=== PATIENT | male | born 1965 | race Caucasian/White ===

== ENCOUNTER 2018-08-08 12:09 | Emergency (ER) | END 2018-08-08 15:46 | disposition home or self-care (01) ==

== ENCOUNTER 2018-12-26 23:00 | Emergency (ER) | payer OTHER ==
[~2018-12-26] VITALS: Ht 170.2 cm; Wt 72.5 kg
[~2018-12-26 23:00] MED LIST: ACET325T33 PO; HYDR-4011 PO; IBUP-1542 PO; TRAM50TA2 PO
[2018-12-26 23:23] VITALS: BP 143/94; PULSE 80; RESP 16; Ht 170.2 cm; Wt 72.5 kg
[2018-12-26] MEDS ORDERED: LIDOCAINE 2% (MDV) 20 ML INJ INJ STA (23:50)
--- NOTE | 2018-12-26 23:50 | ERD ---
ER Documentation Chief Complaint Chief Complaint LAC TO FIRST DIGIT RIGHT HAND HPI This is a 53-year-old male with a nonsignificant past medical history presents ED with laceration to right first digit. Patient states that he was working on his car just prior to arrival in ED when he accidentally cut himself with his knife. Patient admits to pain. Denies decreased range of motion, tingling, numbness, lack of sensation fever, chills and all other symptoms. No known drug allergies. Tetanus up-to-date. Does not take blood thinners ROS All systems reviewed and are negative except as per history of present illness. Medications Home Meds Active Scripts Acetaminophen* (Tylenol*) 325 Mg Tablet, 2 TAB PO Q6 PRN for PAIN AND OR ELEVATED TEMP, #30 TAB Prov:ELLA MCNEILL PA-C 08/08/18 Tramadol HCl (Tramadol HCl) 50 Mg Tablet, 50 MG PO Q4 PRN for PAIN, #30 TAB Prov:ELLA MCNEILL PA-C 08/08/18 Hydrocodone/Acetaminophen ([place]man 5-325 Tablet) 1 Each Tablet, 1 TAB PO Q6H PRN for PAIN, #20 TAB Prov:BARBY SILVERMAN PA-C 06/29/16 Ibuprofen* (Motrin*) 600 Mg Tab, 600 MG PO Q6H PRN for PAIN AND OR ELEVATED TEMP, #30 TAB Prov:BARBY SILVERMAN PA-C 06/29/16 Allergies Allergies: Coded Allergies: No Known Allergy (Unverified , 06/29/16) PMhx/Soc History of Surgery: Yes (appendix, r. inguinal hernia, deviated septum) Anesthesia Reaction: No Hx Neurological Disorder: No Hx Respiratory Disorders: No Hx Cardiac Disorders: No Hx Psychiatric Problems: No Hx Miscellaneous Medical Probl: No Hx Alcohol Use: Yes (social) Hx Substance Use: No Hx Tobacco Use: Yes Smoking Status: Never smoker FmHx Family History: No diabetes Physical Exam Vitals Vital Signs Date Temp Pulse Resp B/P (MAP) Pulse Ox O2 O2 Flow FiO2 Time Delivery Rate 12/26/18 98.6 80 16 143/94 99 23:23 (110) Physical Exam Physical Exam Vitals signs: Reviewed by me. General: Well developed, well nourished, in no acute distress. Patient is awake and alert. Head: Normocephalic, atraumatic ENT: Pharynx is clear, Moist mucous membranes, external ears, nose and mouth normal Neck: Supple, no masses, lymphadenopathy or JVD Respiratory: Clear to auscultation bilaterally with no wheezing, rhonchi, rales, no distress Cardiovascular: RRR, no murmurs, rubs, or gallops Upper Extremity -right Skin: 3 cm laceration on patient's right 2nd digit Compartments: Soft Motor: Full active range of motion hands and fingers Sensation: Intact shoulder/pinky/middle finger/thumb web space Bones: Nontender h and Snuffbox: Nontender Joints: No effusion Pulses/Perfusion: 2+ radial, Capillary refill < 2 seconds Radial ulnar median nerves tested for sensory and motor function without any deficit Neurologic: Alert and oriented, moving all extremities, normal speech, no focal weakness, no cerebellar signs. Normal mentation Skin: warm and dry, No rash Psych: Normal mood Results 24 hrs Current Medications Medications Dose Sig/Varghese Start Time Status Last (Trade) Ordered Route PRN Stop Time Admin Dose Reason Admin Lidocaine 20 ml ONCE STAT 12/26/18 DC (Xylocaine INJ 23:50 2% (Mdv) 20 12/26/18 23:51 ml) Procedures/MDM LAB INTERPRETATION: Laceration Repair by me: Anesthesia: 2% lidocaine Location: Right second digit Tendon/Joint/Nerves: No injury Foreign body: None detected after copious irrigation and exploration Technique: 7 Simple Interrupted Sutures with 4-0 Ethilon Complexity: No subcutaneous sutures/mucosal r epair/edge excision Post Closure Length: 3 cm Patient's bleeding was easily controlled in the department and there is no indication of anemia. No evidence of compartment syndrome, neurologic injury, vascular injury, open joint, tendon laceration, or foreign body. Patient is appropriate for outpatient follow up. 48 hour wound check. Scar minimization instructions given. ER COURSE: The patient was stable throughout ED course. I kept the patient and/or family informed of laboratory and diagnostic imaging results throughout the emergency room course. The patient was promptly evaluated and a treatment plan was devised based on H&P and other data. This plan was discussed with the patient who agreed and had no further questions or concerns prior to discharge. MEDICAL DECISION MAKING: Laceration was repaired in ED and instructions for post care were discussed. No evidence of compartment syndrome, neurologic injury, vascular injury, open joint, tendon laceration, fracture, dislocation, or foreign body. Patient's vitals are stable and pt can be managed with close out patient follow up. Advised patient to return to ED or to be seen by primary care for a 48 hour wound check. Pt will also need to return to ED or be seen by primary care provider to have sutures removed in 7-10 days. Return to ED with any worsening symptoms and if patient starts experiencing fever, chills, purulent drainage, warmth, swelling at laceration site this may be indications that wound has become infected and patient may need antibiotics. DISPOSITION PLAN: We discussed follow up with the patient's primary care doctor within 24 to 48 hours. Patient counseled regarding my diagnostic impression and care plan. Prior to discharge all questions answered. Pt agrees with treatment plan and understands strict return precautions. Precautionary instructions provided including instructions to return to the ER if not improving or for any worsening or changing symptoms or concerns. SPECIALIST FOLLOW UP RECOMMENDED: None Patient has been advised to follow up with primary care in 1-2 days. Disclaimer: Inadvertent spelling and grammatical errors are likely due to EHR/dictation software use and do not reflect on the overall quality of patient care. Also, please note that the electronic time recorded on this note does not necessarily reflect the actual time of the patient encounter. Blood Pressure Assessment: Patient's blood pressure was elevated (>120/80) but appears stable without evidence of hypertension emergency or urgency. The patient was counseled about the risks of hypertension and urged to pursue outpatient monitoring and therapy within a week with their primary care physician. Departure Diagnosis: Primary Impression: Finger laceration Encounter type: initial encounter Finger: index finger Damage to nail status: without damage Foreign body presence: without foreign body Laterality: right Qualified Codes: S61.210A - Laceration without foreign body of right index finger without damage to nail, initial encounter Condition: Stable Patient Instructions: Laceration, All Referrals: [facility] Additional Instructions: Patient advised to return to the ED immediately for new or worsening symptoms. Patient advised to follow up with primary care provider in the next 24-48 hours. Patient verbalized understanding and agrees with treatment plan and course of action. If patient has no primary care they may follow up with one of the community clinics listed on the following page or one of the options listed below [facility] + [address] [address] or [facility] [address] [place] [address] or [facility] [address] [place] [address] SHAQUILLE LING PA-C Dec 26, 2018 23:50
== END 2018-12-27 00:44 | disposition home or self-care (01) ==
LOC: FTE 23:00
DX: S61.210A Laceration without foreign body of right index finger without damage to nail, initial encounter (principal); W26.0XXA Contact with knife, initial encounter; Y92.9 Unspecified place or not applicable; Z87.891 Personal history of nicotine dependence
CPT/HCPCS: 12002; Z7502; Z7610

== ENCOUNTER 2019-01-30 08:48 | Emergency (ER) | payer OTHER ==
[~2019-01-30] VITALS: Ht 167.6 cm; Wt 69.0 kg
[2019-01-30 08:54] VITALS: Ht 167.6 cm; Wt 69.0 kg
[2019-01-30] MEDS ORDERED: SOD CHLORIDE 0.9% 1,000 ML IV STA (09:12)
[2019-01-30] MEDS ORDERED: morphine 4 MG/ML VIAL IV STA (09:12)
[2019-01-30] MEDS ORDERED: KETOROLAC 15 MG INJ IV STA (09:12)
[2019-01-30] MEDS ORDERED: ONDANSETRON 4 MG INJ IV STA (09:12)
[2019-01-30] MEDS ORDERED: DIPHTH/TET/ACEL PERTUSS (ADULT) 0.5 ML VIAL IM* ONE (09:30)
[2019-01-30] MEDS ORDERED: MUPIROCIN 2% 22 GM OINT TOP ONE (09:30)
[2019-01-30] MEDS ORDERED: OXYC-279 PO (10:07)
[2019-01-30] MEDS ORDERED: IBUP-1542 PO (10:07)
[2019-01-30 10:40] VITALS: BP 131/76; PULSE 75; RESP 16
--- NOTE | 2019-01-30 13:48 | ERD ---
ER Documentation Chief Complaint Chief Complaint rt shoulder pain s/p fall from sakteboard HPI 53-year-old man complains of right shoulder pain and decreased range of motion after falling off of a skateboard onto his right side he does recall the entire episode and denies loss of consciousness but states he struck his head when he fell. He denies back pain or difficulty ambulating, no paresis or paresthesias, no chest pain or shortness of breath. Patient has no complaints of headache and had no vomiting or nausea ROS All systems reviewed and are negative except as per history of present illness. Medications Home Meds Active Scripts Oxycodone HCl/Acetaminophen (Percocet 5-325 mg Tablet) 1 Each Tablet, 1 EACH PO TID, #9 TAB Prov:GIULIANO DICKSON MD 01/30/19 Ibuprofen* (Motrin*) 600 Mg Tab, 600 MG PO Q8 PRN for PAIN AND/OR INFLAMMATION, #30 TAB Prov:GIULIANO DICKSON MD 01/30/19 Acetaminophen* (Tylenol*) 325 Mg Tablet, 2 TAB PO Q6 PRN for PAIN AND OR ELEVATED TEMP, #30 TAB Prov:ELLA MCNEILL PA-C 08/08/18 Tramadol HCl (Tramadol HCl) 50 Mg Tablet, 50 MG PO Q4 PRN for PAIN, #30 TAB Prov:ELLA MCNEILL PA-C 08/08/18 Hydrocodone/Acetaminophen ([place] 5-325 Tablet) 1 Each Tablet, 1 TAB PO Q6H PRN for PAIN, #20 TAB Prov:BARBY SILVERMAN PA-C 06/29/16 Ibuprofen* (Motrin*) 600 Mg Tab, 600 MG PO Q6H PRN for PAIN AND OR ELEVATED TEMP, #30 TAB Prov:BARBY SILVERMAN PA-C 06/29/16 Allergies Allergies: Coded Allergies: No Known Allergy (Unverified , 06/29/16) PMhx/Soc History of Surgery: Yes (appendix, r. inguinal hernia, deviated septum) Anesthesia Reaction: No Hx Neurological Disorder: No Hx Respiratory Disorders: No Hx Cardiac Disorders: No Hx Psychiatric Problems: No Hx Miscellaneous Medical Probl: No Hx Alcohol Use: Yes (social) Hx Substance Use: No Hx Tobacco Use: Yes (10/daily) Smoking Status: Current every day smoker FmHx Family History: No diabetes Physical Exam Vitals Vital Signs Date Temp Pulse Resp B/P (MAP) Pulse Ox O2 O2 Flow FiO2 Time Delivery Rate 01/30/19 98.1 75 16 131/76 98 Room Air 10:40 (94) 01/30/19 98.1 75 20 124/81 99 Room Air 10:05 (95) 01/30/19 97.7 93 18 149/95 98 08:54 (113) Physical Exam GENERAL: Well-developed, well-nourished, well-hydrated, in no apparent distress, looks nontoxic in appearance HEENT: Moist mucous membranes, pink conjunctiva, no cervical spine tenderness or step-off deformities, no goiter, no jaundice or icterus, extraocular movements intact without pain. No submandibular induration, and no pharyngeal erythema NEURO: Alert and oriented 3, cranial nerves II through XII intact bilaterally, pupils equal round reactive to light, sensation to the median, ulnar, radial, axillary nerves are equal and intact on the right upper extremity CARDIAC: Regular rate and rhythm, no murmurs rubs or gallops LUNGS: Clear bilaterally no wheezing crackles or stridor ABDOMEN: Soft nontender, no guarding, no rigidity, no rebound, no psoas sign no obturator sign. Normoactive bowel sounds SKIN: Warm and dry to touch, positive abrasion to the right posterior shoulder and bony deformity at the lateral edge of the right clavicle, no lacerations, no ulcers EXTREMITIES: No clubbing cyanosis, patient has full range of motion at the right shoulder but it is limited due to pain, mild tenderness over the lateral edge of the right clavicle. Distal pulses equal and bilateral PSYCH: Normal affect without agitation or irritability Result Diagram: 01/30/1992001/30/19920 Results 24 hrs Laboratory Tests Test 01/30/19 09:21 White Blood Count 5.3 10^3/ul Red Blood Count 5.00 10^6/ul Hemoglobin 14.1 g/dl Hematocrit 41.5 % Mean Corpuscular Volume 83.0 fl Mean Corpuscular Hemoglobin 28.2 pg Mean Corpuscular Hemoglobin Concent 34.0 g/dl Red Cell Distribution Width 12.3 % Platelet Count 292 10^3/UL Mean Platelet Volume 8.8 fl Immature Granulocytes % 0.400 % Neutrophils % 66.0 % Lymphocytes % 22.5 % Monocytes % 7.5 % Eosinophils % 2.8 % Basophils % 0.8 % Nucleated Red Blood Cells % 0.0 /100WBC Immature Granulocytes # 0.020 10^3/ul Neutrophils # 3.5 10^3/ul Lymphocytes # 1.2 10^3/ul Monocytes # 0.4 10^3/ul Eosinophils # 0.2 10^3/ul Basophils # 0.0 10^3/ul Nucleated Red Blood Cells # 0.0 10^3/ul Sodium Level 141 mmol/L Potassium Level 3.9 mmol/L Chloride Level 106 mmol/L Carbon Dioxide Level 27 mmol/L Anion Gap 8 Blood Urea Nitrogen 14 mg/dl Creatinine 0.85 mg/dl Est Glomerular Filtrat Rate mL/min > 60 mL/min Glucose Level 111 mg/dl Calcium Level 9.6 mg/dl Current Medications Medications Dose Sig/Varghese Start Time Status Last (Trade) Ordered Route PRN Stop Time Admin Dose Reason Admin Diphtheria/ 0.5 ml ONCE ONCE 01/30/19 DC Tetanus/Acell IM* 09:30 Pertussis 01/30/19 09:31 (Adacel) Mupirocin 1 applic ONCE ONCE 01/30/19 DC 01/30/19 (Bactroban) TOP 09:30 10:04 01/30/19 09:31 Sodium 1,000 ml @ Q1H STAT 01/30/19 DC 01/30/19 Chloride 1,000 mls/hr IV 09:12 09:57 01/30/19 10:11 Morphine 4 mg ONCE STAT 01/30/19 DC 01/30/19 Sulfate IV 09:12 09:57 (morphine) 01/30/19 09:14 Ondansetron 4 mg ONCE STAT 01/30/19 DC 01/30/19 HCl (Zofran IV 09:12 09:57 Inj) 01/30/19 09:14 Ketorolac 15 mg ONCE STAT 01/30/19 DC 01/30/19 Tromethamine IV 09:12 09:57 (Toradol) 01/30/19 09:14 Procedures/MDM IV line was established patient was placed on alarm security or surveillance monitor rhythm strip revealed a sinus rhythm at about 80 bpm with upright P and T waves. Patient was afebrile Mupirocin antibiotic ointment applied to the shoulder abrasion, I also administered 1 L normal saline IV, Toradol 50 mg IV, Zofran 4 mg IV, Percocet 1 tablet p.o., and tetanus toxoid 0.[address] scan of the brain was negative for acute bleed mass or shift. X-ray right shoulder 3V Interpreted by me: Bones: No fracture Joints: The lateral edge of the right clavicle elevated in comparison to the acromion process of the right scapula consistent with AC joint separation Foreign body: None Chest X-ray 1V Interpreted by me: Soft Tissue: No acute abnormalities Bones: No acute abnormalities Mediastinum/Cardiac Silhouette/Lungs: No acute abnormalities CBC and electrolytes were normal. Right upper extremity placed in a shoulder immobilizer for comfort and supportive measures. Splint Assessment: Neurovascularly intact post splint placement with good fit. Patient feels much better at this time, and vital signs are normal, symptoms have improved. I did give strict instructions to return to the ED if symptoms continue or worsen, patient will otherwise follow-up with primary care physician. Patient understood instructions and agreed to plan. Disclaimer: Inadvertent spelling and grammatical errors are likely due to EHR/ dictation software use and do not reflect on the overall quality of patient care. Also, please note that the electronic time recorded on this note does not necessarily reflect the actual time of the patient encounter. Departure Diagnosis: Primary Impression: Acromioclavicular joint separation, type 2 Encounter type: initial encounter Laterality: right Qualified Codes: S43.101A - Unspecified dislocation of right acromioclavicular joint, initial encounter Additional Impressions: Sprain of right shoulder Encounter type: initial encounter Shoulder sprain type: other part of shoulder region Qualified Codes: S43.491A - Other sprain of right shoulder joint, initial encounter Abrasion Ruled Out: Shoulder injury Condition: Good Patient Instructions: Ac Joint Sprain Referrals: GLORIA TRAORE MD,IN GIULIANO VASQUEZ MD, MD Jan 30, 2019 13:48
== END 2019-01-30 10:45 | disposition home or self-care (01) ==
LOC: E/R 08:48
DX: S43.101A Unspecified dislocation of right acromioclavicular joint, initial encounter (principal); S43.491A Other sprain of right shoulder joint, initial encounter; F17.210 Nicotine dependence, cigarettes, uncomplicated; R40.2142 Coma scale, eyes open, spontaneous, at arrival to emergency department; R40.2252 Coma scale, best verbal response, oriented, at arrival to emergency department; R40.2362 Coma scale, best motor response, obeys commands, at arrival to emergency department; R07.9 Chest pain, unspecified; R93.0 Abnormal findings on diagnostic imaging of skull and head, not elsewhere classified; V00.131A Fall from skateboard, initial encounter; Y92.9 Unspecified place or not applicable
CPT/HCPCS: 29105; 36415; 70450; 71045; 73030; 80048; 85025; 85610; 85730; 96374; 96375; J1885; J2270; J2405; J7030; Z7502; Z7610